=== PATIENT | male | born 1960 | race Two or more races ===

== ENCOUNTER 2016-10-07 09:00 | Observation (INO) | payer SELFPAY ==
[2016-10-07 09:43] LABS: ABSOLUTE EOSINOPHILS # (AUTO) 0.2 10^3/uL (0.0-0.6); ABSOLUTE LYMPHOCYTES (AUTO) 2.7 10^3/uL (0.5-4.7); ABSOLUTE MONOCYTES (AUTO) 0.7 10^3/uL (0.1-1.4); ABSOLUTE NEUT (AUTO) 2.7 10^3/uL (1.7-8.2); BASOPHILS % (AUTO) 0.6 % (0-2); EOSINOPHILS % (AUTO) 2.5 % (0-6); HEMATOCRIT 41.2 % (37.9-51.0); HGB HCT DIFFERENCE 0.8; LYMPHOCYTES % (AUTO) 42.5 % (13-45); MEAN CORPUSCULAR HEMOGLOBIN 27.8 pg (27.0-33.4); MEAN CORPUSCULAR HGB CONC 33.9 g/dL (32.0-36.0); MEAN CORPUSCULAR VOLUME 82 fl (80-97); MONOCYTES % (AUTO) 11.5 % (3-13); RED BLOOD COUNT 5.03 10^6/uL (4.35-5.55); RED CELL DISTRIBUTION WIDTH 14.3 % (11.5-14.0); SEGMENTED NEUTROPHILS % (AUTO) 42.9 % (42-78); WHITE BLOOD COUNT 6.3 10^3/uL (4.0-10.5)
[2016-10-07 09:58] LABS: ALANINE AMINOTRANSFERASE 35 U/L (21-72); ALBUMIN 4.4 g/dL (3.5-5.0); ALKALINE PHOSPHATASE 64 U/L (38-126); ANION GAP 14 (5-19); ASPARTATE AMINO TRANSFERASE 25 U/L (17-59); BILIRUBIN,DIRECT 0.3 mg/dL (0.0-0.4); BILIRUBIN,TOTAL 0.5 mg/dL (0.2-1.3); BLOOD UREA NITROGEN 25 mg/dL (7-20); CALCIUM 9.3 mg/dL (8.4-10.2); CARBON DIOXIDE 26 mmol/L (22-30); CHLORIDE 104 mmol/L (98-107); CREATINE KINASE 197 U/L (55-170); CREATININE RESULT 1.19 mg/dL (0.52-1.25); GLUCOSE 122 mg/dL (75-110); POTASSIUM 4.3 mmol/L (3.6-5.0); SODIUM 143.5 mmol/L (137-145); TOTAL PROTEIN 7.5 g/dL (6.3-8.2)
[2016-10-07 10:08] LABS: CREATINE KINASE MB 1.27 ng/mL (<4.55)
[2016-10-07 10:11] LABS: TROPONIN I < 0.012 ng/mL
[2016-10-07] MEDS ORDERED: ONDANSETRON HCL INJ/PF 4 MG/2 ML SDV IV ONE (10:42)
[2016-10-07 10:44] LABS: APPEARANCE,URINE CLEAR; BILIRUBIN,URINE NEGATIVE (NEGATIVE); GLUCOSE, URINE NEGATIVE (NEGATIVE); KETONES,URINE NEGATIVE (NEGATIVE); LEUKOCYTE ESTERASE,URINE NEGATIVE (NEGATIVE); NITRITE,URINE NEGATIVE (NEGATIVE); PROTEIN,URINE NEGATIVE (NEGATIVE); URINE SPECIFIC GRAVITY 1.023; UROBILINOGEN,URINE NEGATIVE mg/dL (<2.0)
--- NOTE | 2016-10-07 10:46 | ER Document Report ---
ED Dizziness/Weakness - General Chief Complaint: Near Syncope Stated Complaint: DIZZINESS Notes: Patient presents with "spinning" his head that started this morning readings at home after taking a shower. He suddenly became very dizzy and says he went down to the floor, got up and went next door to his neighbors who brought him here to the hospital. He is able to walk, although exhibits unsteady on his feet. At this time, patient's primary complaint is of spinning and feeling weak with some nausea. He was observed to be diaphoretic. He specifically denies any pain anywhere, especially no headache and no chest pains. Has not been ill recently. No fevers. Has no significant past medical history. Does not take any routine prescription medications or any medical problems. TRAVEL OUTSIDE OF THE [place] IN LAST 30 DAYS: No - Related Data Allergies/Adverse Reactions: No Known Allergies Allergy (Verified 10/07/16 09:54) Past Medical History - Social History Smoking Status: Unknown if Ever Smoked Cigarette use (# per day): No Family History: Reviewed & Not Pertinent - Medical History Medical History: Negative - Past Medical History Cardiac Medical History: Denies: Hx Coronary Artery Disease, Hx Heart Attack Neurological Medical History: Denies: Hx Cerebrovascular Accident, Hx Seizures Endocrine Medical History: Denies: Hx Diabetes Mellitus Type 1, Hx Diabetes Mellitus Type 2 Past Surgical History: Reports: Hx Appendectomy Review of Systems - Review of Systems Notes: REVIEW OF SYSTEMS: Slightly limited because patient is originally from [facility] and speaks Polish. He speaks fairly good Welsh, however. CONSTITUTIONAL : Denies fever. EENT: Denies eye, ear, nose or mouth or throat pain or other symptoms. CARDIOVASCULAR: Denies chest pain. RESPIRATORY: Denies cough, chest congestion, or shortness of breath. GASTROINTESTINAL: Denies abdominal pain or nausea, vomiting, or diarrhea. GENITOURINARY: Denies difficulty or painful urinating, urinary frequency, blood in urine. MUSCULOSKELETAL: Denies back or neck pain. Denies joint pain or swelling. SKIN: Denies rash or skin lesions. NEUROLOGICAL: Denies LOC or altered mental status. Denies headache. Denies sensory loss or motor deficits. ALL OTHER SYSTEMS REVIEWED AND NEGATIVE. Physical Exam - Notes Notes: PHYSICAL EXAMINATION: GENERAL: Well-appearing, in no acute distress. Patient is able to stand, although he seems to be a bit unsteady on his feet. No lateralizing signs. HEAD: Atraumatic, normocephalic. Negative bruits in either carotid. EYES: Pupils equal round and reactive to light, extraocular movements intact. No nystagmus. ENT: oropharynx clear without exudates. Moist mucous membranes. NECK: Normal range of motion, supple. LUNGS: Breath sounds clear and equal bilaterally. HEART: Regular rate and rhythm without murmurs. ABDOMEN: Soft, nontender. No guarding or rebound. BACK: No tenderness throughout entire back. EXTREMITIES: Normal range of motion without pain. NEUROLOGICAL: Normal speech, can stand but slight unsteadiness. Normal sensory , motor, and reflex exams. Awake, alert, and oriented x3. Cranial nerves normal. PSYCH: Normal mood, normal affect. SKIN: Warm, dry, no rashes. Course - Re-evaluation Re-evalutation: 10/07/16 11:44 Patient's workup has come back essentially negative for all studies. He still has some spinning sensation. No other symptoms. I spoke with the hospitalist about observing the patient for further evaluation. Dr. Langston will be admitting the patient. - Laboratory Result Diagrams: 10/07/16 09:20 10/07/16 09:20 Laboratory results interpreted by me: 10/07/16 10/07/16 10/07/16 09:20 09:20 10:05 RDW 14.3 H BUN 25 H Glucose 122 H Creatine Kinase 197 H Urine Blood SMALL H - Diagnostic Test Radiology reviewed: Image reviewed, Reports reviewed - CT scan of the head and brain are normal. - EKG Interpretation by [place] EKG shows normal: Sinus rhythm Rate: Normal Rhythm: NSR Additional EKG results interpreted by me: 10/07/16 11:44 EKG is normal. Critical Care Note - Critical Care Note Total time excluding time spent on procedures (mins): 30 Discharge - Discharge Clinical Impression: Syncope Qualifiers: Syncope type: unspecified Qualified Code(s): R55 - Syncope and collapse Condition: Stable Disposition: ADMITTED OBSERVATION Admitting Provider: Hospitalist Unit Admitted: Telemetry
[2016-10-07] MEDS ORDERED: METOCLOPRAMIDE HCL INJ/PF 10 MG/2 ML SDV IV PRN (13:21)
[2016-10-07] MEDS ORDERED: ONDANSETRON HCL INJ/PF 4 MG/2 ML SDV IV PRN (13:21)
--- NOTE | 2016-10-07 14:19 | EKG REPORT ---
SEVERITY:- NORMAL ECG - SINUS RHYTHM : Confirmed by: Joey Berger 07-Oct-2016 14:18:34
[2016-10-07] MEDS: MECLIZINE HCL 25 MG TABLET PO SCH ×2 (14:51→21:53)
[2016-10-07] MEDS: NORMAL SALINE 1000 ML 1,000 ML IV PRN (14:51)
--- NOTE | 2016-10-07 15:28 | PDOC H&P ---
History of Present Illness Admission Date/PCP: 10/07/16 13:21 No physician Patient complains of: Vertigo new-onset History of Present Illness: LEO LONDON is a 56 year old male with "spinning" his head that started this morning readings at home after taking a shower. He suddenly became very dizzy and says he went down to the floor, got up and went next door to his neighbors who brought him here to the hospital. He is able to walk, although exhibits unsteady on his feet. At this time, patient's primary complaint is of spinning and feeling weak with some nausea. He was observed to be diaphoretic. He specifically denies any pain anywhere, especially no headache and no chest pains. Has not been ill recently. No fevers. Has no significant past medical history. Does not take any routine prescription medications or any medical problem Past Medical History Cardiac Medical History: Denies: Coronary Artery Disease, Myocardial Infarction Pulmonary Medical History: Reports: Pneumonia Neurological Medical History: Denies: Seizures Endocrine Medical History: Denies: Diabetes Mellitus Type 1, Diabetes Mellitus Type 2 Past Surgical History Past Surgical History: Reports: Appendectomy Social History Information Source: Patient Smoking Status: Never Smoker Frequency of Alcohol Use: Social Hx Recreational Drug Use: No Hx Prescription Drug Abuse: No - Advance Directive Resuscitation Status: Full Code Family History Family History: Other - Unknown Parental Family History Reviewed: Yes Children Family History Reviewed: Yes Sibling(s) Family History Reviewed.: Yes Medication/Allergy Home Medications: No Home Medications 10/07/16 Allergies/Adverse Reactions: No Known Allergies Allergy (Verified 10/07/16 09:54) Review of Systems Constitutional: ABSENT: chills, fever(s), headache(s), weight gain, weight loss Eyes: ABSENT: visual disturbances Ears: ABSENT: hearing changes Cardiovascular: ABSENT: chest pain, dyspnea on exertion, edema, orthropnea, palpitations Respiratory: ABSENT: cough, hemoptysis Gastrointestinal: ABSENT: abdominal pain, constipation, diarrhea, hematemesis, hematochezia, nausea, vomiting Genitourinary: ABSENT: dysuria, hematuria Musculoskeletal: ABSENT: joint swelling Integumentary: ABSENT: rash, wounds Neurological: PRESENT: abnormal gait, dizziness. ABSENT: abnormal speech, confusion, focal weakness, syncope Psychiatric: ABSENT: anxiety, depression, homidical ideation, suicidal ideation Endocrine: ABSENT: cold intolerance, heat intolerance, polydipsia, polyuria Hematologic/Lymphatic: ABSENT: easy bleeding, easy bruising Physical Exam Vital Signs: Temp Pulse Resp BP Pulse Ox 98.4 F 77 16 130/70 H 100 10/07/16 14:45 10/07/16 14:46 10/07/16 14:46 10/07/16 14:46 10/07/16 14:46 Intake & Output 10/06/16 10/07/16 10/08/16 00:59 00:59 00:59 Weight 77.111 kg General appearance: PRESENT: no acute distress, well-developed, well-nourished Head exam: PRESENT: atraumatic, normocephalic Eye exam: PRESENT: conjunctiva pink, EOMI, PERRLA. ABSENT: scleral icterus Ear exam: PRESENT: normal external ear exam Mouth exam: PRESENT: moist, tongue midline Neck exam: ABSENT: carotid bruit, JVD, lymphadenopathy, thyromegaly Respiratory exam: PRESENT: clear to auscultation [place]. ABSENT: rales, rhonchi, wheezes Cardiovascular exam: PRESENT: RRR. ABSENT: diastolic murmur, rubs, systolic murmur Pulses: PRESENT: normal dorsalis pedis pul Vascular exam: PRESENT: normal capillary refill GI/Abdominal exam: PRESENT: normal bowel sounds, soft. ABSENT: distended, guarding, mass, organolmegaly, rebound, tenderness Rectal exam: PRESENT: deferred Extremities exam: PRESENT: full ROM. ABSENT: calf tenderness, clubbing, pedal edema Neurological exam: PRESENT: alert, awake, oriented to person, oriented to place , oriented to time, oriented to situation, CN II-XII grossly intact. ABSENT: motor sensory deficit Psychiatric exam: PRESENT: appropriate affect, normal mood, other - No nystagmus. ABSENT: homicidal ideation, suicidal ideation Skin exam: PRESENT: dry, intact, warm. ABSENT: cyanosis, rash Results Laboratory Results: Labs- All tests 24 hr 10/07/16 10/07/16 10/07/16 08:55 09:20 09:20 WBC 6.3 RBC 5.03 Hgb 14.0 Hct 41.2 MCV 82 MCH 27.8 MCHC 33.9 RDW 14.3 H Plt Count 175 Seg Neutrophils % 42.9 Lymphocytes % 42.5 Monocytes % 11.5 Eosinophils % 2.5 Basophils % 0.6 Absolute Neutrophils 2.7 Absolute Lymphocytes 2.7 Absolute Monocytes 0.7 Absolute Eosinophils 0.2 Absolute Basophils 0.0 Sodium 143.5 Potassium 4.3 Chloride 104 Carbon Dioxide 26 Anion Gap 14 BUN 25 H Creatinine 1.19 Est GFR ( Amer) > 60 Est GFR (Non-Af Amer) > 60 Glucose 122 H POC Glucose 110 Calcium 9.3 Total Bilirubin 0.5 Direct Bilirubin 0.3 Indirect Bilirubin Not Reportable Neonat Total Bilirubin Not Reportable AST 25 ALT 35 Alkaline Phosphatase 64 Creatine Kinase 197 H CK-MB (CK-2) Troponin I Total Protein 7.5 Albumin 4.4 Urine Color Urine Appearance Urine pH Ur Specific [place] Urine Protein Urine Glucose (UA) Urine Ketones Urine Blood Urine Nitrite Urine Bilirubin Urine Urobilinogen Ur Leukocyte Esterase Urine WBC (Auto) Urine RBC (Auto) Urine Mucus (Auto) Urine Ascorbic Acid Stool Occult Blood 10/07/16 10/07/16 10/07/16 09:20 10:05 10:35 WBC RBC Hgb Hct MCV MCH MCHC RDW Plt Count Seg Neutrophils % Lymphocytes % Monocytes % Eosinophils % Basophils % Absolute Neutrophils Absolute Lymphocytes Absolute Monocytes Absolute Eosinophils Absolute Basophils Sodium Potassium Chloride Carbon Dioxide Anion Gap BUN Creatinine Est GFR ( Amer) Est GFR (Non-Af Amer) Glucose POC Glucose Calcium Total Bilirubin Direct Bilirubin Indirect Bilirubin Neonat Total Bilirubin AST ALT Alkaline Phosphatase Creatine Kinase CK-MB (CK-2) 1.27 Troponin I < 0.012 Total Protein Albumin Urine Color YELLOW Urine Appearance CLEAR Urine pH 5.0 Ur Specific [place] 1.023 Urine Protein NEGATIVE Urine Glucose (UA) NEGATIVE Urine Ketones NEGATIVE Urine Blood SMALL H Urine Nitrite NEGATIVE Urine Bilirubin NEGATIVE Urine Urobilinogen NEGATIVE Ur Leukocyte Esterase NEGATIVE Urine WBC (Auto) 0 Urine RBC (Auto) 1 Urine Mucus (Auto) RARE Urine Ascorbic Acid NEGATIVE Stool Occult Blood NEGATIVE EKG Comments: NSR Impressions: Head CT 10/07/16 00:00 IMPRESSION: No acute intracranial abnormality identified. Chest X-Ray 10/07/16 10:50 IMPRESSION: Patchy opacity seen in the left lower lobe in the retrocardiac region which could represent atelectasis, aspiration, infiltrate, or edema. Correlate clinically. Assessment & Plan - Diagnosis (1) Vertigo Is this a current diagnosis for this admission?: YesPlan: Patient likely has labyrintitis We will order MRI head MRI ; MRA of the carotid to exclude cerebellar infarction and vertebral artery dissection We'll treat the patient with meclizine Hans and Regshamir Patient was admitted to telemetry unit for observation (2) DVT prophylaxis Is this a current diagnosis for this admission?: Yes - Time Time Spent with patient: No clear history of syncope We will monitor the patient EKG was in normal sinus rhythm Time Spent: 50 to 70 Minutes
[2016-10-07] MEDS ORDERED: ENOXAPARIN SODIUM INJ 40 MG/0.4 ML DISP.SYRIN SUBCUT ONE (16:00)
[2016-10-08] MEDS: MECLIZINE HCL 25 MG TABLET PO SCH (05:20)
[2016-10-08 06:13] LABS: CHOLESTEROL 190.26 mg/dL (0-200); Direct HDL 46 mg/dL (>40); TRIGLYCERIDES 271 mg/dL (<150)
[2016-10-08 06:24] LABS: DIRECT LDL 102 mg/dL (<100)
[2016-10-08 06:28] LABS: VLDL CHOLESTEROL 54.2 mg/dL (10-31)
[2016-10-08] MEDS ORDERED: ENOXAPARIN SODIUM INJ 40 MG/0.4 ML DISP.SYRIN SUBCUT SCH (08:00)
[2016-10-08] MEDS: NORMAL SALINE 1000 ML 1,000 ML IV PRN (08:19)
[2016-10-08 11:57] VITALS: BP 142/75
== END 2016-10-08 12:51 | disposition home or self-care (01) ==
LOC: ER 09:00 → EH 12:02 → UNDOADMOB 12:02 → EH 13:21 → 5 15:15
PROVIDERS: ADMIT Emergency Medicine; ATTEND Emergency Medicine
DX: R55 Syncope and collapse (principal); R42 Dizziness and giddiness; R53.1 Weakness; R11.0 Nausea; R26.81 Unsteadiness on feet; R61 Generalized hyperhidrosis; Z90.49 Acquired absence of other specified parts of digestive tract; R91.8 Other nonspecific abnormal finding of lung field; Z87.01 Personal history of pneumonia (recurrent)
CPT/HCPCS: 93005; 99291; 96361; 96374; 36415 ×2; 82553; 82962; 82550; 84443; 85025; 82272; 80053; 81001; 84484; 83036; 80061; 70551; 70547; 71020; 70450; 93010; G0378 ×3; J1650 ×2; J2405; J7030 ×2

== ENCOUNTER 2016-11-05 06:38 | Emergency (ER) | payer SELFPAY ==
--- NOTE | 2016-11-05 07:12 | RADIOLOGY REPORT (SQ) ---
EXAM DESCRIPTION: CT HEAD WITHOUT COMPLETED DATE/TIME: 11/05/2016 6:59 am REASON FOR STUDY: confusion COMPARISON: 10/07/2016. MRI, 10/07/2016. TECHNIQUE: Axial images acquired through the brain without intravenous contrast. Images reviewed wi th bone, brain and subdural windows. Images stored on PACS. All CT scanners at this facility use dose modulation, iterative reconstruction, and/or weight based d osing when appropriate to reduce radiation dose to as low as reasonably achievable (ALARA). [facility]: Dose Right [facility]: CareDose [facility]: Dose Right [facility]: Teradose 4D [facility]: [employer] RADIATION DOSE: 64.61 mGy. LIMITATIONS: None. FINDINGS: VENTRICLES: Normal size and contour. CEREBRUM: No masses. No hemorrhage. No midline shift. Normal hamilton/white matter differentiation. N o evidence for acute infarction. CEREBELLUM: No masses. No hemorrhage. No alteration of density. No evidence for acute infarction. EXTRAAXIAL SPACES: No fluid collections. No masses. ORBITS AND GLOBE: No intra- or extraconal masses. Normal contour of globe without masses. CALVARIUM: No fracture. PARANASAL SINUSES: 0.8 cm left maxillary retention cyst -mucocele. SOFT TISSUES: No mass or hematoma. OTHER: No other significant finding. IMPRESSION: NORMAL BRAIN CT WITHOUT CONTRAST. TECHNICAL DOCUMENTATION: JOB ID: [id number] Quality ID # [id number]: Final reports with documentation of one or more dose reduction techniques (e.g., Au tomated exposure control, adjustment of the mA and/or kV according to patient size, use of iterative reconstruction technique) 2010 [employer]- All Rights Reserved
[2016-11-05] MEDS ORDERED: LORAZEPAM 1 MG TABLET PO ONE (07:17)
[2016-11-05] MEDS ORDERED: MECLIZINE HCL 25 MG TABLET PO ONE (07:17)
--- NOTE | 2016-11-05 07:17 | ER Document Report ---
ED Dizziness/Weakness - General Mode of Arrival: Ambulatory Information source: Patient TRAVEL OUTSIDE OF THE [place] IN LAST 30 DAYS: No - HPI Patient complains to provider of: Dizziness Associated symptoms: Other - See above <ENMA GAMEZ - Last Filed: 11/05/16 07:17> <ESTELLE SAUNDERS - Last Filed: 11/05/16 10:11> - General Chief Complaint: Dizziness Stated Complaint: DIZZINESS Time Seen by Provider: 11/05/16 07:00 Notes: Patient is a 56 year old male who presents to the emergency department complaining of dizziness onset yesterday. Patient reports he felt dizzy yesterday morning, was driving all day yesterday, and then was afraid to go to sleep last night because of the dizziness and having tingling and numbness from the top of his head down his left arm. Patient was seen at this facility last month for similar complaints and treated for vertigo. Patient states that now he gets dizzy when he stands up. Patient does not have a PCP. (ENMA GAMEZ) Patient is also complaining that he is unable to sleep due to the sensations he feels inside his head. (ESTELLE SAUNDERS) - Related Data Allergies/Adverse Reactions: No Known Allergies Allergy (Verified 10/07/16 09:54) Past Medical History - General Information source: Patient - Social History Smoking Status: Unknown if Ever Smoked Family History: Reviewed & Not Pertinent, Other - Unknown Patient has suicidal ideation: No Patient has homicidal ideation: No Pulmonary Medical History: Reports: Hx Pneumonia Past Surgical History: Reports: Hx Appendectomy <ENMA GAMEZ - Last Filed: 11/05/16 07:17> Review of Systems - Review of Systems Constitutional: No symptoms reported EENT: No symptoms reported Cardiovascular: See HPI, Dizziness Respiratory: No symptoms reported Gastrointestinal: No symptoms reported Genitourinary: No symptoms reported Male Genitourinary: No symptoms reported Musculoskeletal: No symptoms reported Skin: No symptoms reported Hematologic/Lymphatic: No symptoms reported Neurological/Psychological: See HPI, Numbness, Tingling -: Yes All other systems reviewed and negative <ENMA GAMEZ - Last Filed: 11/05/16 07:17> Physical Exam - Vital signs Interpretation: Normal - General General appearance: Appears well, Alert - HEENT Head: Normocephalic, Atraumatic Extraocular movements intact: Yes Tympanic membrane: Normal Neck: Normal - Respiratory Respiratory status: No respiratory distress Chest status: Nontender Breath sounds: Normal Chest palpation: Normal - Cardiovascular Rhythm: Regular Heart sounds: Normal auscultation Murmur: No - Abdominal Inspection: Obese - mildly Distension: No distension Bowel sounds: Normal Tenderness: Nontender Organomegaly: No organomegaly - Extremities General upper extremity: Normal inspection General lower extremity: Normal inspection - Neurological Neuro grossly intact: Yes Cognition: Normal Orientation: AAOx4 [place] Coma Scale Eye Opening: Spontaneous Monica Coma Scale Verbal: Oriented Monica Coma Scale Motor: Obeys Commands Monica Coma Scale Total: 15 Speech: Normal - Psychological Associated symptoms: Normal affect, Normal mood - Skin Skin Temperature: Warm Skin Moisture: Dry Skin Color: Normal <ENMA GAMEZ - Last Filed: 11/05/16 07:17> Course <ENMA GAMEZ - Last Filed: 11/05/16 07:17> - Diagnostic Test Radiology reviewed: Image reviewed, Reports reviewed - CT of the head is normal. <ESTELLE SAUNDERS - Last Filed: 11/05/16 10:11> - Re-evaluation Re-evalutation: 11/05/16 08:27 I checked in on the patient, he is sound asleep and snoring loudly. 11/05/16 09:30 The patient remains sound asleep at this time. 11/05/16 10:07 After sleeping for at least 2 hours, the patient states his symptoms are no better. Still indicates he has a buzzing sensation inside his head on the right and the left. Son is here now, and states that the patient has anxiety about having cancer in his brain. Also reports the patient drinks at least 3 beers every day. He did not follow-up with anyone as he was directed to on his admission here a month ago. (ESTELLE SAUNDERS) - Vital Signs Vital signs: Temp Pulse Resp BP Pulse Ox 98.2 F 67 18 164/100 H 98 11/05/16 06:48 11/05/16 06:48 11/05/16 08:07 11/05/16 06:48 11/05/16 06:48 Discharge <ENMA GAMEZ - Last Filed: 11/05/16 07:17> <ESTELLE SAUNDERS - Last Filed: 11/05/16 10:11> - Discharge Clinical Impression: Dizziness Condition: Stable Disposition: HOME, SELF-CARE Additional Instructions: There is no clear explanation found for your symptoms today. You should follow-up with Dr. Allen at [facility] to further evaluate your symptoms. You should also follow-up with a local medical doctor to manage her medical problems. We strongly recommend you stop drinking alcohol, as this may play a part in your symptoms. RETURN TO THE EMERGENCY ROOM IF ANY NEW OR WORSENING SYMPTOMS. Referrals: [facility] [Provider Group] - Follow up in 1 week Scribe Attestation: 11/05/16 10:11 I personally performed the services described in the documentation, reviewed and edited the documentation which was dictated to the scribe in my presence, and it accurately records my words and actions. (ESTELLE SAUNDERS) Scribe Documentation - Scribe Written by Ariana:: ariana Salas, 11/05/16, 0723 acting as scribe for :: Fernandez <ENMA GAMEZ - Last Filed: 11/05/16 07:17>
--- NOTE | 2016-11-05 08:18 | EKG REPORT ---
SEVERITY:- ABNORMAL ECG - SINUS RHYTHM PROBABLE LEFT ATRIAL ABNORMALITY PROBABLE LEFT VENTRICULAR HYPERTROPHY : Confirmed by: Nathan Ribera MD 05-Nov-2016 08:18:10
[2016-11-05 14:33] VITALS: BP 140/95
== END 2016-11-05 10:32 | disposition home or self-care (01) ==
LOC: ER 06:38
DX: R42 Dizziness and giddiness (principal)
CPT/HCPCS: 70450; 93005; 93010; 99284

== ENCOUNTER 2016-11-18 11:17 | Emergency (ER) | payer SELFPAY ==
[2016-11-18] MEDS ORDERED: MECLIZINE HCL 25 MG TABLET PO ONE (12:26)
--- NOTE | 2016-11-18 12:26 | ER Document Report ---
ED Medical Screen (RME) - General Chief Complaint: Headache Stated Complaint: BLOOD PRESSURE PROBLEMS Time Seen by Provider: 11/18/16 12:22 Mode of Arrival: Ambulatory Information source: Patient Notes: 56-year-old male presents with complaints of headache, patient notes he feels a swishing sound. Patient denies any loss of consciousness however has had a syncopal episode in the past I have greeted and performed a rapid initial assessment of this patient. A comprehensive ED assessment and evaluation of the patient, analysis of test results and completion of the medical decision making process will be conducted by additional ED providers. PHYSICAL EXAMINATION: GENERAL: Well-appearing, well-nourished and in no acute distress. HEAD: Atraumatic, normocephalic. EYES: Pupils equal round and reactive to light, extraocular movements intact, sclera anicteric, conjunctiva are normal. ENT: Nares patent, oropharynx clear without exudates. Moist mucous membranes. NECK: Normal range of motion, supple without lymphadenopathy LUNGS: Breath sounds clear to auscultation bilaterally and equal. No wheezes rales or rhonchi. HEART: Regular rate and rhythm without murmurs ABDOMEN: Soft, nontender, nondistended abdomen. No guarding, no rebound. No masses appreciated. Musculoskeletal: Normal range of motion, no pitting or edema. No cyanosis. NEUROLOGICAL: Cranial nerves grossly intact. Normal speech, normal gait. Normal sensory, motor exams PSYCH: Normal mood, normal affect. SKIN: Warm, Dry, normal turgor, no rashes or lesions noted. TRAVEL OUTSIDE OF THE [place] IN LAST 30 DAYS: No - Related Data Allergies/Adverse Reactions: No Known Allergies Allergy (Verified 11/18/16 11:22) Past Medical History - Past Medical History Cardiac Medical History: Denies: Hx Coronary Artery Disease, Hx Heart Attack Pulmonary Medical History: Reports: Hx Pneumonia Neurological Medical History: Denies: Hx Cerebrovascular Accident, Hx Seizures Endocrine Medical History: Denies: Hx Diabetes Mellitus Type 1, Hx Diabetes Mellitus Type 2 Renal/ Medical History: Denies: Hx Peritoneal Dialysis Past Surgical History: Reports: Hx Appendectomy Physical Exam - Vital signs Vitals: Temp Pulse Resp BP Pulse Ox 98.0 F 72 18 132/68 H 97 11/18/16 11:23 11/18/16 11:23 11/18/16 11:23 11/18/16 11:23 11/18/16 11:23 Course - Vital Signs Vital signs: Temp Pulse Resp BP Pulse Ox 98.0 F 72 18 132/68 H 97 11/18/16 11:23 11/18/16 11:23 11/18/16 11:23 11/18/16 11:23 11/18/16 11:23
--- NOTE | 2016-11-18 12:57 | RADIOLOGY REPORT (SQ) ---
EXAM DESCRIPTION: CT HEAD WITHOUT COMPLETED DATE/TIME: 11/18/2016 12:47 pm REASON FOR STUDY: headache COMPARISON: 11/05/2016 TECHNIQUE: Axial images acquired through the brain without intravenous contrast. Images reviewed wi th bone, brain and subdural windows. Images stored on PACS. All CT scanners at this facility use dose modulation, iterative reconstruction, and/or weight based d osing when appropriate to reduce radiation dose to as low as reasonably achievable (ALARA). [facility]: Dose Right [facility]: CareDose [facility]: Dose Right [facility]: Teradose 4D [facility]: [employer] RADIATION DOSE: 64.61 mGy. LIMITATIONS: None. FINDINGS: VENTRICLES: Normal size and contour. CEREBRUM: No masses. No hemorrhage. No midline shift. Normal hamilton/white matter differentiation. N o evidence for acute infarction. CEREBELLUM: No masses. No hemorrhage. No alteration of density. No evidence for acute infarction. EXTRAAXIAL SPACES: No fluid collections. No masses. ORBITS AND GLOBE: No intra- or extraconal masses. Normal contour of globe without masses. CALVARIUM: No fracture. PARANASAL SINUSES: No fluid levels. SOFT TISSUES: No mass or hematoma. OTHER: No other significant finding. IMPRESSION: NORMAL BRAIN CT WITHOUT CONTRAST. TECHNICAL DOCUMENTATION: JOB ID: [id number] Quality ID # [id number]: Final reports with documentation of one or more dose reduction techniques (e.g., Au tomated exposure control, adjustment of the mA and/or kV according to patient size, use of iterative reconstruction technique) 2010 [employer]- All Rights Reserved
--- NOTE | 2016-11-18 16:10 | ER Document Report ---
ED General - General Chief Complaint: Headache Stated Complaint: BLOOD PRESSURE PROBLEMS Time Seen by Provider: 11/18/16 12:22 Mode of Arrival: Ambulatory Information source: Patient Notes: Patient presents emergency department with complaints of feeling a swishing in his head. Patient speaks in broken armenian but understands what I am saying. he wrote on the triage form that he has had headache and high blood pressure to the patient he just complains of a swishing in his head. He denies trauma. Denies fever vomiting diarrhea. Patient talks about how is not worked since 1995 but denies being disabled. Reports he does have a lot of pain in his body. Reports he lives with his cousin. Reports he is worried about his cholesterol. He is very pleasant to talk to does not seem confused. He reports he is just worried and when he feels a swishing in his head he comes back to the emergency department. He reports that she was started yesterday. CT of the head was done which was negative. TRAVEL OUTSIDE OF THE [place] IN LAST 30 DAYS: No - HPI Onset: Yesterday Quality of pain: No pain Associated symptoms: None Exacerbated by: Denies Relieved by: Denies Similar symptoms previously: Yes Recently seen / treated by doctor: No - Related Data Allergies/Adverse Reactions: No Known Allergies Allergy (Verified 11/18/16 11:22) Past Medical History - General Information source: Patient - Social History Smoking Status: Never Smoker Chew tobacco use (# tins/day): No Frequency of alcohol use: Rare Drug Abuse: None Lives with: Family - cousin Family History: Reviewed & Not Pertinent, Other - Unknown Patient has suicidal ideation: No Patient has homicidal ideation: No - Past Medical History Cardiac Medical History: Denies: Hx Coronary Artery Disease, Hx Heart Attack Pulmonary Medical History: Reports: Hx Pneumonia Neurological Medical History: Denies: Hx Cerebrovascular Accident, Hx Seizures Endocrine Medical History: Denies: Hx Diabetes Mellitus Type 1, Hx Diabetes Mellitus Type 2 Renal/ Medical History: Denies: Hx Peritoneal Dialysis Past Surgical History: Reports: Hx Appendectomy Review of Systems - Review of Systems Notes: Review HPI for review of systems., All other systems negative Physical Exam - Vital signs Vitals: Temp Pulse Resp BP Pulse Ox 98.0 F 72 18 132/68 H 97 11/18/16 11:23 11/18/16 11:23 11/18/16 11:23 11/18/16 11:23 11/18/16 11:23 - Notes Notes: PHYSICAL EXAMINATION: GENERAL: Well-appearing and in no acute distress HEAD: Atraumatic, normocephalic. EYES: Pupils equal round and reactive to light, extraocular movements intact, sclera anicteric, conjunctiva are normal. ENT: nares patent, oropharynx clear without exudates. Moist mucous membranes. NECK: Normal range of motion, supple without lymphadenopathy LUNGS: CTAB and equal. No wheezes rales or rhonchi. HEART: Regular rate and rhythm without murmurs ABDOMEN: Soft, no tenderness. No guarding, no rebound EXTREMITIES: Normal range of motion, no pitting edema. No cyanosis. NEUROLOGICAL: Cranial nerves grossly intact. Normal sensory/motor exams. PSYCH: Normal mood, normal affect. SKIN: Warm, Dry, normal turgor, no rashes or lesions noted Course - Re-evaluation Re-evalutation: 11/18/16 CT negative. Vital signs stable. Patient speaking without problems clear voice , instructed on importance of fu with [facility] december 03 as scheduled return here for worsening signs/ or concerns. Pt looks nontoxic, verbalized understanding to all instructions. - Vital Signs Vital signs: Temp Pulse Resp BP Pulse Ox 97.8 F 60 16 131/85 H 97 11/18/16 16:27 11/18/16 16:27 11/18/16 16:27 11/18/16 16:27 11/18/16 16:27 - Diagnostic Test Radiology reviewed: Image reviewed, Reports reviewed - CT NEG Discharge - Discharge Clinical Impression: Elevated blood pressure reading, swishing sound in head Condition: Stable Disposition: HOME, SELF-CARE Additional Instructions: *You have been evaluated for a swishing sound in your head, elevated blood pressure reading *The CT was negative today for an acute injury *Follow up with the [facility] December 03 *Return to ED for worsening condition, changes, needs *Return to ED if not better in 24 hours Forms: Elevated Blood Pressure
[2016-11-18 16:28] VITALS: BP 131/85
== END 2016-11-18 16:31 | disposition home or self-care (01) ==
LOC: ER 11:17
DX: R51 Headache (principal); R03.0 Elevated blood-pressure reading, without diagnosis of hypertension; M79.1 Myalgia
CPT/HCPCS: 70450; 99284